=== PATIENT | female | born 1995 | race Caucasian/White ===

== ENCOUNTER 2019-07-21 10:22 | Emergency (ER) | payer OTHER ==
[2019-07-21 10:40] VITALS: BP 131/72; PULSE 86; TEMP 98.6; BMI 22.6
--- NOTE | 2019-07-21 11:20 | PDOC ---
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 No pain or swelling. No other injuries Review of systems: Reviewed and otherwise negative Past medical history: Healthy student, no significant medical or surgical problems past or present, no medications. Tetanus is up-to-date Social/family history reviewed and noncontributory Physical exam: Alert oriented well-developed well-nourished no acute distress cooperative Afebrile, vital signs normal 1.5 cm laceration mid dorsum of the left foot, superficial. No swelling, deformity, or point tenderness. Pulses full. Good capillary refill. No sensory or motor deficits to the forefoot or toes Impression: Superficial laceration. No sign of fracture or other more serious injury. Plan: Repair and follow-up 07/21/19 11:48 Past History - Past Medical History Allergies/Adverse Reactions: Allergies Allergy/AdvReac Type Severity Reaction Status Date / Time No Known Allergies Allergy Verified 07/21/19 10:24 Home Medications: Ambulatory Orders Control 0 mg PO DAILY 07/21/19 COPD: No Other medical history: PT DENIES - Psycho Social/Smoking Cessation Hx Smoking History: Never smoked Hx Alcohol Use: No Drug/Substance Use Hx: No *Physical Exam - Vital Signs Last Vital Signs Temp Pulse Resp BP Pulse Ox 98.6 F 86 16 131/72 100 07/21/19 10:24 07/21/19 10:24 07/21/19 10:24 07/21/19 10:24 07/21/19 10:24 Medical Decision Making - Medical Decision Making 07/21/19 11:46 Procedure note: Repair of laceration Skin prepped with Betadine. Scrubbed with normal saline. Irrigated. Local anesthesia 1% Xylocaine plain Wound further scrubbed with saline, hemostasis with pressure Closed with interrupted 4-0 nylon sutures x3. Bacitracin. 4 x 4 and Dexter. Wound care discussed Recheck if sign of infection Sutures out 7 to 10 days Fully ambulatory and in no pain or other distress at discharge to follow-up as directed Discharge - Discharge Information Problems reviewed: Yes Clinical Impression/Diagnosis: Laceration of foot Condition: Improved Disposition: HOME - Admission No - Follow up/Referral - Patient Discharge Instructions Patient Printed Discharge Instructions: DI for Laceration Repair Additional Instructions: Keep clean and dry Recheck immediately if signs of infection Dressing change daily with antibiotic ointment. Stitch removal in 7 to 10 days. - Post Discharge Activity
== END 2019-07-21 11:22 | disposition home or self-care (01) ==
LOC: FER 10:22
PROC: 0HQNXZZ Repair Left Foot Skin, External Approach (ICD-10-PCS; principal; 2019-07-21)
DX: S91.312A Laceration without foreign body, left foot, initial encounter (principal); W20.8XXA Other cause of strike by thrown, projected or falling object, initial encounter; Y93.89 Activity, other specified; Y92.89 Other specified places as the place of occurrence of the external cause
CPT/HCPCS: 99282-25

== ENCOUNTER 2019-07-29 12:33 | Emergency (ER) | payer OTHER ==
--- NOTE | 2019-07-29 12:38 | PDOC ---
Suture Removal/Wound Check HPI - History of Present Illness Chief Complaint: Suture/Staple Removal(Here) Stated Complaint: SUTURE REMOVAL Time Seen by Provider: 07/29/19 12:36 - Onset of Previous Treatment Comment:: 07/29/19 12:36 24 F here for suture removal. Had 3 sutures placed in L foot 8 days ago. Denies any redness/swelling/pain/drainage. Past History - Past Medical History Allergies/Adverse Reactions: Allergies Allergy/AdvReac Type Severity Reaction Status Date / Time No Known Allergies Allergy Verified 07/29/19 12:35 Home Medications: Ambulatory Orders Control 0 mg PO DAILY 07/21/19 COPD: No - Psycho Social/Smoking Cessation Hx Smoking History: Never smoked Hx Alcohol Use: No Drug/Substance Use Hx: No *Review of Systems - Review of Systems 07/29/19 12:36 "GENERAL/CONSTITUTIONAL: No fever or chills. No weakness. HEAD, EYES, EARS, NOSE AND THROAT: No change in vision. No ear pain or discharge. No sore throat. CARDIOVASCULAR: No chest pain, no shortness of breath, no loss of consciousness RESPIRATORY: No cough, wheezing, or hemoptysis. GASTROINTESTINAL: No nausea, vomiting, diarrhea or constipation. GENITOURINARY: No dysuria, frequency, or change in urination. MUSCULOSKELETAL: No joint or muscle swelling or pain. No neck or back pain. SKIN: No rash NEUROLOGIC: No vertigo, no change in strength/sensation. ENDOCRINE: No increased thirst. No abnormal weight change. HEMATOLOGIC/LYMPHATIC: No anemia, easy bleeding, or history of blood clots. ALLERGIC/IMMUNOLOGIC: No hives or skin allergy. *Physical Exam - Physical Exam 07/29/19 12:36 "GENERAL: Awake, alert, and fully oriented, in no acute distress. HEAD: No signs of trauma EYES: PERRLA, EOMI, sclera anicteric, conjunctiva clear ENT: Auricles normal inspection, hearing grossly normal, nares patent, oropharynx clear without exudates. Moist mucosa NECK: Nontender, no stepoffs, Normal ROM, supple, no lymphadenopathy, JVD, or masses LUNGS: Breath sounds equal, clear to auscultation bilaterally. No wheezes, and no crackles HEART: Regular rate and rhythm, normal S1 and S2, no murmurs, rubs or gallops ABDOMEN: Soft, nontender, normoactive bowel sounds. No guarding, no rebound. No masses EXTREMITIES: Normal range of motion, no edema. No clubbing or cyanosis. No cords, erythema, or tenderness NEUROLOGICAL: Cranial nerves II through XII intact. 5/5 strength and sensation in all extremities, Normal speech, normal gait, normal cerebellar function SKIN: [address], dorsum of L foot, well healing lac, no erythema/ induration/fluctuance/drainage Medical Decision Making - Medical Decision Making 07/29/19 12:37 24 F here for suture removal. - 3 sutures removed Pt is well appearing, with normal vitals. Clinically stable for DC at this time. I discussed the physical exam findings, ancillary test results and final diagnoses with the patient. I answered all of the patient's questions. The patient was satisfied with the care received and felt comfortable with the discharge plan and treatment plan. The patient agrees to follow up with the primary care physician within 24-72 hours. Discharge - Discharge Information Problems reviewed: Yes Clinical Impression/Diagnosis: Visit for suture removal Condition: Stable - Follow up/Referral - Patient Discharge Instructions Patient Printed Discharge Instructions: DI for Suture Removal Additional Instructions: Return to the ER if you experience any redness, swelling, drainage, pain, or any other concerning symptoms. - Post Discharge Activity
== END 2019-07-29 12:49 | disposition home or self-care (01) ==
LOC: FER 12:33
DX: Z48.02 Encounter for removal of sutures (principal)
CPT/HCPCS: 99281-25